=== PATIENT | female | born 1985 | race Caucasian/White ===

== ENCOUNTER → 2021-01-25 | Day surgery (SDC) | payer OTHER ==
[~2021-01-25] VITALS: Ht 162.6 cm; Wt 113.4 kg
[~2021-01-25] MED LIST: ASPIRIN EC81 MG PO; HEATHER0.35 MG PO; IBUPROFEN800 M1 PO; TYLENOL PM EX-1 EACH PO
[2021-01-25 07:48] LABS: HCG (URINE) SCREEN NEGATIVE (NEGATIVE)
== END | disposition home or self-care (01) ==
LOC: FAS 07:01
PROVIDERS: Obstetrics & Gynecology
DX: N93.9 Abnormal uterine and vaginal bleeding, unspecified (principal); N84.0 Polyp of corpus uteri; D64.9 Anemia, unspecified; E22.1 Hyperprolactinemia; G93.2 Benign intracranial hypertension; Z30.09 Encounter for other general counseling and advice on contraception; Z87.891 Personal history of nicotine dependence; Z88.8 Allergy status to other drugs, medicaments and biological substances; Z79.82 Long term (current) use of aspirin; Z79.899 Other long term (current) drug therapy
CPT/HCPCS: 84703; 93005; J1100; J1644; J1885; J2250; J2405; J2704; J3010; J7120

== ENCOUNTER 2021-02-21 09:51 | Emergency (ER) | payer OTHER ==
[2021-02-21 11:27] LABS: BASOPHIL 0.8 % (0-2); EOSINOPHIL 2.2 % (0-5); HCT 27.7 % (37.0-47.0); HGB 8.5 g/dl (12.5-16.0); LYMPHOCYTE 27.6 % (15-48); MCHC 30.7 g/dL (32.0-36.0); MCV 84.7 fL (78.0-100.0); MPV 10.2 fL (6.0-9.5); NEUTROPHIL 62.2 % (41-80); NRBC 0; PLT 367 K/uL (150-400); RBC 3.27 M/uL (4.20-5.40); RDW 14.2 % (11.5-14.0); RETICULOCYTE COUNT 2.2 % (1.0-2.0); WBC 6.5 K/uL (4.0-10.5)
[2021-02-21 11:28] LABS: BILIRUBIN NEGATIVE (NEGATIVE); BLOOD 3+ Ery/uL (NEGATIVE); CLARITY CLOUDY (CLEAR); GLUCOSE (U) NORMAL (NORMAL); LEUKOCYTES 1+ Leu/uL (NEGATIVE); NITRITE POSITIVE (NEGATIVE); PROTEIN 3+ mg/dL (NEGATIVE); SPECIFIC GRAVITY >=1.030 (1.001-1.030)
[2021-02-21 11:32] LABS: COLOR RED (YELLOW)
[2021-02-21 11:36] LABS: ALBUMIN 3.7 g/dL (3.4-5.0); BILIRUBIN - TOTAL 0.4 mg/dL (0.2-1.0); BUN/CREAT RATIO (CALC) 13.6 RATIO; CREATININE 0.66 mg/dL (0.51-0.95); POTASSIUM 3.7 mmol/L (3.5-5.1); TOTAL PROTEIN 7.7 g/dL (6.4-8.2)
[2021-02-21 11:44] LABS: URINARY RBC TNTC; URINARY WBC RARE
[2021-02-21 11:45] LABS: SQUAMOUS EPITHELIAL CELLS RARE
[2021-02-21] MEDS ORDERED: BACTRIM DS TAB1 EACH PO (14:39)
== END 2021-02-21 15:09 | disposition home or self-care (01) ==
LOC: FER 09:51
PROVIDERS: Internal Medicine
DX: N93.9 Abnormal uterine and vaginal bleeding, unspecified (principal); D62 Acute posthemorrhagic anemia; N39.0 Urinary tract infection, site not specified; Z88.8 Allergy status to other drugs, medicaments and biological substances
CPT/HCPCS: 36415; 76830; 80053; 81001; 85025; 86850; 86900; 86901; 87088; J0696

== ENCOUNTER 2021-02-27 15:54 | Emergency (ER) | payer OTHER ==
[~2021-02-27 15:54] MED LIST changes: +BACTRIM DS TAB1 EACH PO
[2021-02-27 17:04] LABS: BASOPHIL 0.6 % (0-2); EOSINOPHIL 3.1 % (0-5); HCT 21.5 % (37.0-47.0); LYMPHOCYTE 32.9 % (15-48); MCH 25.2 pg (25.0-31.0); MCHC 29.3 g/dL (32.0-36.0); MONOCYTE 7.1 % (0-12); MPV 9.3 fL (6.0-9.5); PLT 398 K/uL (150-400); RDW 14.8 % (11.5-14.0); WBC 4.8 K/uL (4.0-10.5)
[2021-02-27 17:09] LABS: HGB 6.3 g/dl (12.5-16.0)
[2021-02-27 17:14] LABS: RETICULOCYTE COUNT 3.4 % (1.0-2.0)
[2021-02-27 17:19] LABS: ALBUMIN 3.3 g/dL (3.4-5.0); BILIRUBIN - TOTAL 0.2 mg/dL (0.2-1.0); BUN/CREAT RATIO (CALC) 8.6 RATIO; CREATININE 0.7 mg/dL (0.51-0.95); GLOBULIN (CALCULATION) 3.7 g/dL; INR 0.97 (0.9-1.2); POTASSIUM 4.4 mmol/L (3.5-5.1); PROTHROMBIN TIME 12.3 SECONDS (11.8-13.4); PTT 28.6 SECONDS (24.4-34.7)
[2021-02-27 17:54] LABS: CORONAVIRUS 2019 SARS-COV-2 NEGATIVE (NEGATIVE); INFLUENZA A NAA NEGATIVE (NEGATIVE)
[2021-02-28 00:52] LABS: HGB 8.1 g/dL (12.5-16.0)
== END 2021-02-28 01:52 | disposition home or self-care (01) ==
LOC: FER 15:54
PROVIDERS: Emergency Medicine; Internal Medicine
DX: D64.9 Anemia, unspecified (principal); Z88.8 Allergy status to other drugs, medicaments and biological substances; Z20.822 Contact with and (suspected) exposure to COVID-19
CPT/HCPCS: 36415; 36430; 71045; 80053; 82728; 84145; 85014; 85018; 85025; 85610; 85730; 86850; 86900; 86901; 86922; P9016; Q9967; U0002